=== PATIENT | female | born 1945 | race Caucasian/White ===

== ENCOUNTER 2018-08-19 08:03 | Outpatient (CLI) | payer BC ==
--- NOTE | 2018-08-19 15:57 | NM ---
NUCLEAR MEDICINE PARATHYROID PLANAR WITH SPECT CT IMAGING: CLINICAL HISTORY: Hypocalcaemia. FINDINGS: Planar and SPECT CT imaging of the thyroid/parathyroid region performed subsequently to administratio n of 26 mCi Technetium 99m sestamibi IV. This reveals asymmetric increased activity of the right thy roid lobe which is prominent in volume and therefore likely relates to retained scintigraphic activit y within the thyroid nodule. Otherwise, no scintigraphic evidence of parathyroid adenoma. IMPRESSION: Asymmetric increased activity within right thyroid lobe related to a complex right thyroid lesion. N o discrete parathyroid adenoma. Please reference separate report from concurrent CT neck parathyroid protocol for additional details from separate scan results. POS: [facility]
--- NOTE | 2018-08-19 16:17 | CT ---
PRE AND POST CONTRAST ENHANCED IMAGES SOFT TISSUE NECK: History: Elevated parathormone, right sided thyroid nodule seen on ultrasound. Technique: Pre and post contrast enhanced CT of the soft tissue neck was obtained. Sagittal and coron al reconstructed images were performed. FINDINGS: Images demonstrate previously noted area of thyroid heterogeneity within the right thyroid lobe. Some tiny subcentimeter thyroid isthmus in the left thyroid region is also seen. No significant evidence of areas of focal extra thyroid tissue is seen to suggest a parathyroid adeno ma. The patient appears to have had previous right parotid surgery. The left parotid gland is unremarkabl e. No definite evidence of common or internal carotid artery significant disease is seen. No evidence of superior mediastinal abnormality is seen. The upper aspect of the lungs are unremarkab le with no evidence of masses seen. Coronary artery calcification is seen. IMPRESSION: No evidence of parathyroid adenoma is seen. POS: [facility]
[2018-08-19] MEDS ORDERED: Iopamidol 370 76% 100 ML VIAL ONE (16:18)
[2018-08-19] MEDS ORDERED: Iopamidol 370 76% 50 ML VIAL FS ONE (16:18)
== END 2018-08-19 08:04 | disposition home or self-care (01) ==
LOC: CT 08:03
PROVIDERS: ATTEND Otolaryngology Plastic Surgery within the Head & Neck
DX: E83.52 Hypercalcemia (principal); E07.9 Disorder of thyroid, unspecified
CPT/HCPCS: 70492; 78072; 82565; A9500

== ENCOUNTER 2025-09-21 01:12 | Emergency (ER) | payer BC ==
[2025-09-21 02:07] LABS: #Basophils 0.03 10x3/uL (0.0-0.2); #Eosinophils 0.19 10x3/uL (0.0-0.7); #Monocytes 0.79 10x3/uL (0.11-0.59); #Neutrophils 3.75 10x3/uL (1.40-6.50); %Basophils 0.4 % (0.0-1.0); %Eosinophils 2.4 % (0.0-10.0); %Lymphocytes 39.6 % (21.0-51.0); %Monocytes 10.0 % (0.0-10.0); %Neutrophils 47.3 % (42.0-75.0); Hematocrit 24.6 % (36.0-47.0); Hemoglobin 7.6 g/dL (12.0-16.0); Mean Corpuscular Hemoglobin 29.0 pg (27.0-31.0); Mean Corpuscular Volume 93.9 fL (78.0-98.0); Platelet Count 284 10x3/uL (130-400); Red Blood Cell (RBC) Count 2.62 mill/uL (4.20-5.40); White Blood Cell (WBC) Count 7.91 10x3/uL (4.8-10.8)
[2025-09-21 02:23] LABS: ALT (SGPT) 18 U/L (Less than 34); AST (SGOT) 11 U/L (11-34); Albumin 2.9 g/dL (3.1-4.5); Alkaline Phosphatase 55 U/L (40-110); Anion Gap 13 mmol/L (10-20); BUN (Urea Nitrogen) 55 mg/dL (9.8-20.1); Bilirubin, Total 0.3 mg/dL (0.3-1.2); Calc. Creatinine Clearance 0 mL/min (70-130); Calcium 9.6 mg/dL (7.8-10.44); Carbon Dioxide 22 mmol/L (23-31); Chloride 107 mmol/L (98-107); Globulin 2.7 g/dL (2.4-3.5); Glucose 95 mg/dL (83-110); Lipase 16 U/L (8-78); Magnesium 1.9 mg/dL (1.6-2.6); Potassium 5.1 mmol/L (3.5-5.1); Sodium 137 mmol/L (136-145)
[2025-09-21 02:31] LABS: INR-International Normal Ratio 1.1; PTT 30.1 sec (22.9-36.1); Prothrombin Time 14.4 sec (12.0-14.7)
[2025-09-21 04:02] LABS: Bacteria/HPF None Seen HPF (None Seen); CAUTI Indications for Culture Dysuria,urgency,freq; Glucose, Urine (Dipstick) 50 mg/dL (Negative); Leukocyte Negative Leu/uL (Negative); Protein, Urine (Dipstick) 50 mg/dL (Neg-Trace); RBC/HPF 0-3 HPF (0-3); Specific Gravity, Urine 1.010 (1.002-1.036); WBC/HPF 0-3 HPF (0-3)
[2025-09-21 04:07] LABS: Urine Culture Reflex No No
== END 2025-09-21 06:50 | disposition home or self-care (01) ==
LOC: ERS 01:12
DX: D64.9 Anemia, unspecified (principal); N17.9 Acute kidney failure, unspecified; I12.9 Hypertensive chronic kidney disease with stage 1 through stage 4 chronic kidney disease, or unspecified chronic kidney disease; N18.30 Chronic kidney disease, stage 3 unspecified; E03.9 Hypothyroidism, unspecified; E66.9 Obesity, unspecified; Z79.899 Other long term (current) drug therapy; Z79.890 Hormone replacement therapy; Z87.891 Personal history of nicotine dependence
CPT/HCPCS: 51701; 74176; 80053; 81001; 83690; 83735; 83880; 84484; 85025; 85610; 85730; 93005